=== PATIENT | female | born 1990 | race Caucasian/White ===

== ENCOUNTER → 2016-12-24 | Outpatient (CLI) | payer BC ==
[~2016-12-24] MED LIST: ALBU0.08 INH; ALBU0.633 NEB; CALC500C3 PO; CARB1CAP11 PO; CETI10TA84 PO; GING1CAP PO; HYDR-5688 PO; LEVO50TA6 PO; LITH300T PO; METH1TAB15 PO; ONDA4TAB7 SL; PANT40TA PO; PRT/20 PO; ZNTT/150 PO
== END ==
LOC: C.PAPS 10:24
PROVIDERS: ATTEND Obstetrics & Gynecology
DX: Z01.419 Encounter for gynecological examination (general) (routine) without abnormal findings (principal); R87.619 Unspecified abnormal cytological findings in specimens from cervix uteri

== ENCOUNTER 2017-03-27 13:22 | Emergency (ER) | payer BC ==
[~2017-03-27] VITALS: Ht 165.1 cm; Wt 56.6 kg
[~2017-03-27 13:22] MED LIST changes: -ALBU0.633 NEB; -HYDR-5688 PO; -LEVO50TA6 PO; -PANT40TA PO
[2017-03-27 13:28] VITALS: TEMP 36.6; Ht 165.1 cm; Wt 56.6 kg
--- NOTE | 2017-03-27 14:20 | EMERGENCY ROOM VISIT NOTE ---
ED Visit Note First contact with patient: 13:45 The patient was seen and examined with Joesph Wiggins PA-C. I agree with the history, physical and findings. Please see the note for disposition and details. The patient's blood work is unremarkable. She will be treated symptomatically. This seems to be most consistent with a Chikungunya infection , zika and dengue unlikely but possible. After further review of the case I discussed the patient again with Joesph. She was notified to hold any steroids and NSAIDs.
[2017-03-27] MEDS ORDERED: ALBU0.633 NEB (14:58)
[2017-03-27] MEDS ORDERED: LEVO50TA6 PO (14:58)
[2017-03-27] MEDS ORDERED: PANT40TA PO (14:58)
[2017-03-27 14:59] LABS: BASO % 0.3 %; BASO ABS # 0.02 K/uL (0-0.2); COMPLETE YES; EOS % 1.6 %; HEMATOCRIT 38.8 % (37-47); IG% 0.3 %; LYMPH % 10.2 %; LYMPH ABS # 0.78 K/uL (1.2-3.4); MEAN CORPUSCULAR HEMOGLOBIN 31.9 pg (25-34); MEAN CORPUSCULAR HGB CONC 33.2 g/dl (32-36); MONO % 6.7 %; NEUT % 80.9 %; PLATELET COUNT 217 K/uL (130-400); RED BLOOD COUNT 4.04 M/uL (4.2-5.4); WHITE BLOOD COUNT 7.61 K/uL (4.8-10.8)
[2017-03-27 15:15] LABS: BUN/CREATININE RATIO 12.1 (10-20); CREATININE 0.86 mg/dl (0.60-1.20); POTASSIUM 3.5 mmol/L (3.5-5.1)
[2017-03-27 15:26] LABS: PREG INTERNAL NEGATIVE QC NEG CLEAR BACKGROUND; PREG INTERNAL POSITIVE QC POS CONTROL LINE
[2017-03-27 15:48] VITALS: BP 121/78; PULSE 79; O2SAT 100
[2017-03-27 16:03] LABS: URINE APPEARANCE CLEAR (CLEAR); URINE BILIRUBIN NEG (NEG); URINE COLOR YELLOW; URINE EPITHELIAL CELL AUTO >30 /lpf (0-5); URINE NITRITE NEG (NEG); URINE SPECIFIC GRAVITY 1.013 (1.000-1.030); UROBILINOGEN NEG (NEG); ZZUR CULT IF INDIC CLEAN CATCH YES
[2017-03-27 16:04] LABS: MANUAL MICROSCOPIC REQUIRED? NO; REVIEW REQ? NO
[2017-03-27] MEDS ORDERED: HYDR-5688 PO (20:08)
--- NOTE | 2017-03-28 01:05 | EMERGENCY ROOM VISIT NOTE ---
ED Visit Note First contact with patient: 13:45 Chief Complaint: Rash. History of Present Illness: Ms. Conley is a 27-year-old white female who ambulates into the ED accompanied by a male friend complaining of a rash. Patient reports she recently returned from [place]. She reports last Tuesday , while in [place], she developed a rash on her legs. Since that time she has been having the rash spreading onto her trunk and arms. The rash has also been worsening on her legs. Patient reports her rash was precipitated by an insect bite over the medial aspect of the right ankle. Associated with her rash she reports that while she was in [place] she was having fevers, chills, body aches and joint pains; since arriving back in the [facility] she reports she has had resolution of fevers but is still having joint pains and muscle pains. She reports that she was at an urgent care center last night and was told this could be Zika virus. She was placed on topical steroids and encouraged to follow-up in the emergency department. She reports that she has been taking her topical steroids as prescribed and does not feel she is having any relief. Additionally she reports that her rash has been itchy. She denies any recurrent fevers, upper respiratory tract symptoms, cough, wheezing, shortness of breath, abdominal pain, nausea, vomiting, extremity weakness/numbness. Review of Systems: As noted above in history of present illness. 8 body systems were reviewed and found to be negative as noted above. Past Medical History: Asthma, GERD, hypothyroidism. Current Medications: Medications Dose Route/Sig Max Daily Dose Days Date Category Dose Instructions Levothyroxine Sodium 50 Mcg Tab 1 Tab PO DAILY 90 03/27/17 Reported Albuterol Sulfate 0.63 Mg/3 Ml Neb 1 Vial NEB QID PRN 25 03/27/17 Reported Protonix (Pantoprazole Sodium) 40 Mg Tab 40 Mg PO BID 03/27/17 Reported Proventil 0.083% 2.5MG/3ML (Albuterol Sulfate) Nebu 2.5 Mg INH QID PRN 05/27/14 Reported Tums (Calcium Carbonate) 500 Mg Chew 500-1,000 Mg PO QID PRN 05/27/14 Reported Zyrtec (Cetirizine HCl) 10 Mg Tab 10 Mg PO DAILY 05/27/14 Reported Tegretol Xr (Carbamazepine) 200 Mg Tabcr 200 Mg PO BID 05/27/14 Reported Lithobid Ext Rel ([place] Carbonate) 300 Mg Tab Mg PO DAILY 05/27/14 Reported Methylphenidate Hcl Er (Methylphenidate Hcl) 20 Mg Tab 20 Mg PO BID 05/27/14 Reported Allergies to Medications: Patient denies. Social History: Patient is currently employed; she feels safe in her home environment; she denies tobacco use. Physical Examination: Vital Signs: Date Time Temp Pulse Resp B/P (MAP) Pulse Ox O2 Delivery O2 Flow Rate FiO2 03/27/17 15:48 79 18 121/78 100 03/27/17 13:28 36.6 84 16 117/75 100 GENERAL: 27-year-old female in mild to moderate distress due to symptoms, nontoxic-appearing, afebrile and hemodynamically stable. NEUROLOGICAL: Awake, alert and oriented to person, place and time. Answering questions appropriately and following commands. Normal gait. Good hand eye coordination. SKIN: Warm, dry and pink. Trunk and Upper Extremities: Patient has a mild diffuse macular papular rash. There is no erythema or edema on its base. Do not appreciate any vesicles or pustules. There is no signs of cellulitis. Lower Legs: Over the anterior tibia area patient has a sharan coalesced rash. The rash is slightly elevated above the skin. There is no appearance of cellulitis. Once again I do not appreciate any vesicles or pustules. Additionally I did observe her insect bite and it is not erythematous or edematous and the area surrounding this does not appear cellulitic. There is no lymphangitis. HEENT: Atraumatic and normocephalic. No facial involvement of her rash. PERRLA. Sclera white and conjunctiva pink. No drainage from naris. Oral cavity moist and pink. Pharynx is nonerythematous or edematous. Speech normal. No lymphadenopathy. Trachea midline. No jugular venous distention. BACK: No tenderness over the bony spine. Full range of motion of the cervical spine. THORAX: Lungs sounds are clear to auscultation and equal bilaterally with symmetrical chest wall. No wheezing, rales or rhonchi. HEART: Regular rate and rhythm. No gallops, rubs or murmurs are appreciated. ABDOMEN: Flat, soft and nontender. Positive bowel sounds in all quadrants. No guarding, rigidity or organomegaly. EXTREMITIES: Moves all extremities well on command and with purpose. All distal neurovascular statuses are intact and equal bilaterally. No calf tenderness or cords. ED Course: Patient is assessed as noted above. Patient's medication list was reviewed. Laboratory Testing: Test 03/27/17 14:34 03/27/17 15:30 Range/Units White Blood Count 7.61 4.8-10.8 K/uL Red Blood Count 4.04 4.2-5.4 M/uL Hemoglobin 12.9 12.0-16.0 g/dL Hematocrit 38.8 37-47 % Mean Corpuscular Volume 96.0 80-100 fL Mean Corpuscular Hemoglobin 31.9 25-34 pg Mean Corpuscular Hemoglobin Concent 33.2 32-36 g/dl Platelet Count 217 130-400 K/uL Mean Platelet Volume 10.0 7.4-10.4 fL Neutrophils (%) (Auto) 80.9 % Lymphocytes (%) (Auto) 10.2 % Monocytes (%) (Auto) 6.7 % Eosinophils (%) (Auto) 1.6 % Basophils (%) (Auto) 0.3 % Neutrophils # (Auto) 6.16 1.4-6.5 K/uL Lymphocytes # (Auto) 0.78 1.2-3.4 K/uL Monocytes # (Auto) 0.51 0.11-0.59 K/uL Eosinophils # (Auto) 0.12 0-0.5 K/uL Basophils # (Auto) 0.02 0-0.2 K/uL RDW Standard Deviation 45.0 36.4-46.3 fL RDW Coefficient of Variation 12.8 11.5-14.5 % Immature Granulocyte % (Auto) 0.3 % Immature Granulocyte # (Auto) 0.02 0.00-0.02 K/uL Sodium Level 143 136-145 mmol/L Potassium Level 3.5 3.5-5.1 mmol/L Chloride Level 106 98-107 mmol/L Carbon Dioxide Level 30 21-32 mmol/L Anion Gap 7.0 3-11 mmol/L Blood Urea Nitrogen 10 7-18 mg/dl Creatinine 0.86 0.60-1.20 mg/dl Est Creatinine Clear Calc Drug Dose 86.2 ml/min Estimated GFR () 105.8 Estimated GFR (Non- 91.3 BUN/Creatinine Ratio 12.1 10-20 Random Glucose 72 70-99 mg/dl Calcium Level 9.0 8.5-10.1 mg/dl Total Bilirubin 0.3 0.2-1 mg/dl Direct Bilirubin 0.1 0-0.2 mg/dl Aspartate Amino Transf (AST/SGOT) 15 15-37 U/L Alanine Aminotransferase (ALT/SGPT) 24 12-78 U/L Alkaline Phosphatase 56 45-117 U/L Total Protein 7.8 6.4-8.2 gm/dl Albumin 3.7 3.4-5.0 gm/dl Human Chorionic Gonadotropin, Qual NEG NEG Urine Color YELLOW Urine Appearance CLEAR CLEAR Urine pH 7.0 4.5-7.5 Urine Specific [place] 1.013 1.000-1.030 Urine Protein NEG NEG Urine Glucose (UA) NEG NEG Urine Ketones NEG NEG Urine Occult Blood NEG NEG Urine Nitrite NEG NEG Urine Bilirubin NEG NEG Urine Urobilinogen NEG NEG Urine Leukocyte Esterase TRACE NEG Urine WBC (Auto) 10-30 0-5 /hpf Urine RBC (Auto) 0-4 0-4 /hpf Urine Hyaline Casts (Auto) 1-5 0-5 /lpf Urine Epithelial Cells (Auto) >30 0-5 /lpf Urine Bacteria (Auto) 2+ NEG Urine Culture: Pending Testing for Chikungunya infection, zika, dengue and West Nile virus were collected and sent out and are currently pending. Patient's case was reviewed with ; he independently assessed the patient we agreed on diagnostic approach, treatment, disposition and plan. Patient was educated about today's findings and instructed on her treatment plan ; she verbalized understanding and agreement with this plan. unlikely but possible. After further review of the case I discussed the patient again with Joesph. She was notified to hold any steroids and NSAIDs. Clinical Impression: Rash. Fever, joint pain and body aches. Recent travel [place] contaminated area. Decision-Making: Initially my differential diagnosis I considered Chikungunya infection, dengue, West Nile virus, contact dermatitis and other causes. Disposition: Patient discharged home in stable condition accompanied by her ; prior to departure she was reassessed and subjectively reported she was feeling the same. Plan: Patient was encouraged to alternate ibuprofen and acetaminophen every 3 hours as needed for pain or fevers. Patient was encouraged to continue steroids as prescribed. Patient was encouraged to follow-up with family physician for recheck and results of her testing. Patient was encouraged return to the ED for worsening rash, worsening fevers, uncontrolled pain or any new/concerning symptoms. LATE NOTE: After patient was discharged nursing staff approached me and reported that the patient was unhappy and thought she would be getting pain medications and additional medications for her rash. Additionally contact me after the patient left and when he was doing further research noted that the patient should probably hold her steroids in NSAIDs to prevent any risk of increased bleeding from her possible rash. Through the charge nurse the patient was contacted and I spoke with her. Once again I reviewed her laboratory tests. I did offer narcotics for pain control and she refused reporting it made her nauseated and caused her a lot of vomiting. I also offered her Zofran but once again she refused. Additionally I did encourage her to stop using her steroid cream and also NSAID medications to decrease the risks of possible complications until her final testing; she reported that she felt the steroid cream was helping and was unsure she was going to stop the steroids over the NSAIDs. She also told me that she was going to follow-up with her family physician in the next 1-2 days for recheck. I did inform her that I be watching closely for her testing results and would contact her immediately upon myself being notified of her contact results. I did inform her that she could come back to the emergency department for reevaluation or if she is having any other new complaints/concerns.
[2017-03-31 23:40] LABS: CHIKUNGUNYA IGG NEGATIVE; CHIKUNGUNYA IGM NEGATIVE; DENGUE FEVER IgG AB 0.53; DENGUE FEVER IgM AB 0.09
== END 2017-03-27 15:52 | disposition home or self-care (01) ==
LOC: C.EDB 13:23 → C.EDD 15:52
DX: R21 Rash and other nonspecific skin eruption (principal); R50.9 Fever, unspecified; M25.50 Pain in unspecified joint; M79.1 Myalgia; J45.909 Unspecified asthma, uncomplicated; K21.9 Gastro-esophageal reflux disease without esophagitis; E03.9 Hypothyroidism, unspecified

== ENCOUNTER → 2017-05-24 | Outpatient (CLI) | payer BC ==
[~2017-05-24] MED LIST changes: +ALBU0.633 NEB; -GING1CAP PO; +HYDR-5688 PO; +LEVO50TA6 PO; -ONDA4TAB7 SL; +PANT40TA PO; -PRT/20 PO; -ZNTT/150 PO
[2017-05-24 16:09] LABS: URINE APPEARANCE CLEAR (CLEAR); URINE BILIRUBIN NEG (NEG); URINE COLOR YELLOW; URINE EPITHELIAL CELL AUTO >30 /lpf (0-5); URINE NITRITE NEG (NEG); URINE PH 7.5 (4.5-7.5); URINE SPECIFIC GRAVITY 1.023 (1.000-1.030); UROBILINOGEN NEG (NEG)
[2017-05-24 16:48] LABS: MANUAL MICROSCOPIC REQUIRED? NO; REVIEW REQ? NO
== END | disposition home or self-care (01) ==
LOC: C.LABSPEC 15:38
PROVIDERS: ATTEND Physician Assistant
DX: N94.9 Unspecified condition associated with female genital organs and menstrual cycle (principal); R39.15 Urgency of urination

== ENCOUNTER → 2017-07-21 | Outpatient (CLI) | payer BC | END | disposition home or self-care (01) | LOC: C.LAB 11:07 | PROVIDERS: ATTEND Psychiatry & Neurology Child & Adolescent Psychiatry | DX: F31.9 Bipolar disorder, unspecified (principal) ==